=== PATIENT | male | born 1990 | race African-American/Black ===

== ENCOUNTER 2020-05-29 09:07 | Emergency (ER) | payer BC ==
[~2020-05-29] VITALS: Ht 180.3 cm; Wt 120.2 kg
[2020-05-29 09:13] VITALS: BP 143/69
[2020-05-29] MEDS ORDERED: LIDOCAINE VISCOUS 2% UD 15 ML UDC MM ONE (09:30)
[2020-05-29] MEDS ORDERED: FAMOTIDINE (20 MG) 20 MG TABLET PO ONE (09:30)
[2020-05-29] MEDS ORDERED: ONDANSETRON 4 MG TAB.RAPDIS PO ONE (09:30)
[2020-05-29] MEDS ORDERED: BELLADONNA ALK/PHENOBARB TAB 16.2 MG TABLET PO ONE (09:30)
[2020-05-29] MEDS ORDERED: MAG HYDROX/AL HYDROX/SIMETH 30 ML UDC PO ONE (09:30)
[2020-05-29] MEDS ORDERED: MAG HYDROX/AL HYDROX/SIMETH 30 ML UDC ONE (09:36)
[2020-05-29] MEDS ORDERED: LIDOCAINE VISCOUS 2% UD 15 ML UDC ONE (09:36)
[2020-05-29] MEDS ORDERED: FAMOTIDINE (20 MG) 20 MG TABLET ONE (09:36)
[2020-05-29] MEDS ORDERED: ONDANSETRON 4 MG TAB.RAPDIS ONE (09:37)
--- NOTE | 2020-05-29 09:47 | NUR ---
PT REC'D TO ER C/O ABD PAIN ACID REFLUX FOR 2 DAYS MEDS GIVEN PER MD ORDER VSS
== END 2020-05-29 10:29 | disposition home or self-care (01) ==
LOC: ER 09:10
DX: K29.70 Gastritis, unspecified, without bleeding (principal); K21.9 Gastro-esophageal reflux disease without esophagitis
CPT/HCPCS: 99284; Q0162